=== PATIENT | female | born 1990 | race American Indian/Alaskan Native ===

== ENCOUNTER 2017-03-28 13:21 | Emergency (ER) | payer BC ==
[2017-03-28 13:29] VITALS: BP 117/76; PULSE 87; RESP 20; TEMP 98.7; O2SAT 100
--- NOTE | 2017-03-28 13:52 | C.PDOC ---
History Of Present Illness Michelle Romero is a 26 year old female, with no significant past medical history, who presents to the emergency department complaining of body aches and malaise onset for x4 days. Patient denies any sick contacts. She has been taking dayquil and motrin with no relief. She denies any fever, chills, abdominal pain, nausea, vomit or diarrhea. No further medical complaints. PMD: None provided. Time Seen by Provider: 03/28/17 13:47 Chief Complaint (Nursing): Flu-like Symptoms History Per: Patient History/Exam Limitations: no limitations Onset/Duration Of Symptoms: Days (x4) Current Symptoms Are (Timing): Still Present Sick Contacts (Context): None Associated Symptoms: Other (body aches, malaise.). denies: Fever, Chills, Nausea, Vomiting, Diarrhea Ear Symptoms: Bilateral: None Past Medical History Reviewed: Historical Data, Nursing Documentation, Vital Signs Vital Signs: Last Vital Signs Temp 98.7 F 03/28/17 13:27 Pulse 87 03/28/17 13:27 Resp 20 03/28/17 13:27 BP 117/76 03/28/17 13:27 Pulse Ox 100 03/28/17 13:52 - Medical History PMH: No Chronic Diseases Surgical History: No Surg Hx Family History: States: Unknown Family Hx - Social History Hx Tobacco Use: Yes Hx Alcohol Use: Yes Hx Substance Use: No - Immunization History Hx Tetanus Toxoid Vaccination: No Hx Influenza Vaccination: No Hx Pneumococcal Vaccination: No Review Of Systems Constitutional: Positive for: Malaise, Other (body aches). Negative for: Fever , Chills Gastrointestinal: Negative for: Nausea, Vomiting, Abdominal Pain, Diarrhea Physical Exam - Physical Exam Appears: Well, No Acute Distress Skin: Normal Color, Warm, Dry Head: Atraumatic, Normacephalic Eye(s): bilateral: Normal Inspection, PERRL, EOMI Ear(s): Bilateral: Normal Nose: Normal Oral Mucosa: Moist Throat: Normal Neck: Normal ROM, Supple Chest: Symmetrical Cardiovascular: Rhythm Regular, No Murmur Respiratory: Normal Breath Sounds, No Wheezing Gastrointestinal/Abdominal: Normal Exam, Soft, No Tenderness, No Guarding, No Rebound Back: Normal Inspection, No CVA Tenderness, No Vertebral Tenderness, No Paraspinal Tenderness Extremity: Normal ROM, No Deformity, No Swelling Neurological/Psych: Oriented x3 ED Course And Treatment O2 Sat by Pulse Oximetry: 100 (RA) Pulse Ox Interpretation: Normal Medical Decision Making Medical Decision Making: Initial Impression: Viral syndrome Initial Plan: --Motrin tab 600 mg PO --Tamiflu Cap 75 mg PO --Reevaluation empiric tx for flu benign exam. Disposition Doctor Will See Patient In The: Office Counseled Patient/Family Regarding: Studies Performed, Diagnosis - Disposition Referrals: Morro Snell DO [Staff Provider] - Disposition: HOME/ ROUTINE Disposition Time: 13:52 Condition: GOOD Additional Instructions: continue Tamiflu 75 mg twice a day for 5 days (medicine for Influenza) Continue Daytime and Nighttime flu and cold meds- over the counter- per product recommendations Follow-up with your PMD as needed. Symptoms will last 11-14 days. Prescriptions: Oseltamivir [Tamiflu] 75 mg PO BID #9 cap Instructions: Influenza (ED) Forms: [employer] (Faroese) - Clinical Impression Clinical Impression: Influenza-like illness - Scribe Statement Jonathon Tamayo Provider Attestation: All medical record entries made by the Scribe were at my direction and personally dictated by me. I have reviewed the chart and agree that the record accurately reflects my personal performance of the history, physical exam, medical decision making, and the department course for this patient. I have also personally directed, reviewed, and agree with the discharge instructions and disposition.
== END 2017-03-28 13:56 | disposition home or self-care (01) ==
LOC: C.ER 13:21
DX: J11.1 Influenza due to unidentified influenza virus with other respiratory manifestations (principal); Z87.891 Personal history of nicotine dependence

== ENCOUNTER 2018-01-25 06:23 | Emergency (ER) | payer BC, OTHER ==
[2018-01-25 06:26] VITALS: O2SAT 100
[2018-01-25 06:52] LABS: HCG,QUALITATIVE URINE NEGATIVE (NEGATIVE)
[2018-01-25 06:53] LABS: SQUAMOUS EPITHIAL 1 /hpf (0-5); URINE BILIRUBIN NEGATIVE (NEGATIVE); URINE CLARITY Clear (Clear); URINE COLOR Yellow (YELLOW); URINE GLUCOSE (UA) NORMAL (Normal); URINE LEUKOCYTE ESTERASE NEG Leu/uL (Negative); URINE PROTEIN NEGATIVE (NEGATIVE); URINE UROBILINOGEN NORMAL mg/dL (0.2-1.0)
[2018-01-25] MEDS ORDERED: Sodium Chloride 0.9% 1,000 ML IV STA (07:47)
[2018-01-25] MEDS ORDERED: Sodium Chloride 0.9% 1,000 ML ONE (07:55)
[2018-01-25 08:08] LABS: BASO # 0.1 K/uL (0.0-0.2); EOS # 0.1 K/uL (0.0-0.7); HEMOGLOBIN 13.2 g/dL (11.0-16.0); LYMPH # 1.4 K/uL (1.0-4.3); LYMPH % 16.1 % (20.0-40.0); MEAN CORPUSCULAR HEMOGLOBIN 32.6 pg (27.0-31.0); MEAN CORPUSCULAR HGB CONC 34.1 g/dL (33.0-37.0); MEAN PLATELET VOLUME 8.1 fL (7.2-11.7); MONO # 0.7 K/uL (0.0-0.8); MONO % 8.5 % (0.0-10.0); NEUT # 6.4 K/uL (1.8-7.0); NEUT % 73.4 % (50.0-75.0); RBC 4.06 Mil/uL (3.80-5.20); RED CELL DISTRIBUTION WIDTH 13.5 % (11.5-14.5); WHITE BLOOD COUNT 8.7 K/uL (4.8-10.8)
[2018-01-25 08:14] LABS: URINE BLOOD 1+ (NEGATIVE)
[2018-01-25 08:15] LABS: MEAN CELL VOLUME 95.8 fL (81.0-99.0)
[2018-01-25 08:16] LABS: INR 1.2; PROTHROMBIN TIME 12.6 SECONDS (9.7-12.2)
[2018-01-25 08:21] LABS: ALB/GLOB RATIO 1.3 (1.0-2.1); ALT/SGPT 12 U/L (9-52); AST/SGOT 15 U/L (14-36); BLOOD UREA NITROGEN 13 mg/dL (7-17); CALCIUM 8.6 mg/dl (8.6-10.4); GFR NON-AFRICAN AMERICAN > 60
[2018-01-25 08:22] LABS: LIPASE 551 U/L (23-300)
--- NOTE | 2018-01-25 08:43 | C.PDOC ---
History Of Present Illness 27 y/o female presents to ED with c/o pelvic pain radiating to low back and constipation. Patient states her last menses was 12/30/17 and began menses again 01/22/18, states 1st day passed clots and not normal for her. Patient denies fever, chills, dysuria, urinary frequency, vaginal discharge or any other complaints at this time. Time Seen by Provider: 01/25/18 07:18 Chief Complaint (Nursing): Abdominal Pain History Per: Patient History/Exam Limitations: no limitations Onset/Duration Of Symptoms: Days Current Symptoms Are (Timing): Still Present Past Medical History Reviewed: Historical Data, Nursing Documentation, Vital Signs Vital Signs: Last Vital Signs Temp 98.7 F 01/25/18 06:24 Pulse 122 H 01/25/18 06:24 Resp 22 01/25/18 06:24 BP 117/70 01/25/18 06:24 Pulse Ox 100 01/25/18 06:24 - Medical History PMH: Bronchitis Surgical History: No Surg Hx Family History: States: No Known Family Hx - Social History Hx Tobacco Use: Yes Hx Alcohol Use: Yes Hx Substance Use: No - Immunization History Hx Tetanus Toxoid Vaccination: No Hx Influenza Vaccination: No Hx Pneumococcal Vaccination: No Review Of Systems Constitutional: Negative for: Fever, Chills Gastrointestinal: Positive for: Constipation. Negative for: Nausea, Vomiting, Hematochezia Genitourinary: Positive for: Pelvic Pain. Negative for: Dysuria, Vaginal Discharge Physical Exam - Physical Exam Appears: Non-toxic, No Acute Distress Skin: Warm, Dry, No Rash Head: Atraumatic, Normacephalic Eye(s): bilateral: Normal Inspection Oral Mucosa: Moist Neck: Normal ROM, Supple Cardiovascular: Rhythm Regular Respiratory: Normal Breath Sounds, No Rales, No Rhonchi, No Wheezing Gastrointestinal/Abdominal: Soft, Tenderness (RLQ), No Guarding, No Rebound Back: No CVA Tenderness Extremity: Normal ROM, Capillary Refill (<2 seconds) Neurological/Psych: Oriented x3, Normal Speech, Normal Cognition ED Course And Treatment - Laboratory Results Result Diagrams: 01/25/18 08:00 01/25/18 08:00 O2 Sat by Pulse Oximetry: 100 (RA) Pulse Ox Interpretation: Normal - CT Scan/US Transvaginal US Other Rad Studies (CT/US): Read By Radiologist, Radiology Report Reviewed CT/US Interpretation: HISTORY: pelvic pain/vaginal bleeding. COMPARISON: None available. TECHNIQUE: Transvaginal pelvic ultrasound was performed. FINDINGS: UTERUS: Measures 8.2 x 4.2 x 4.6 cm. Anteverted, normal in size and appeara nce. No fibroid or other mass lesion seen. ENDOMETRIUM: Measures 10 mm in diameter. There are small cystic changes in the endometrium, otherwise grossly normal in appearance. CERVIX: No cervical abnormality identified. RIGHT OVARY: Measures 4.7 x 3.1 x 4.8 cm. No solid mass. Normal flow. There is a 2.6 x 2.5 x 2.3 cm septated cyst. LEFT OVARY: Measures 3.5 x 2.1 x 3.2 cm. No solid mass. Normal flow. There is a 1.3 x 1.0 x 1.3 cm calcification which could represent calcified dermoid. Also noted is adjacent fluid with septations which could represent part of the dermoid or exophytic septated cyst. FREE FLUID: No significant free fluid noted. OTHER FINDINGS: None. IMPRESSION: Small cystic changes, otherwise grossly normal sonographic appearance of central endometrial echo complex. 2.6 cm septated cyst in the right ovary. No evidence for torsion. Suspect dermoid in the left ovary. Adjacent septated cystic area could represent part of the dermoid or exophytic cyst. Short-term interval follow-up in 3-6 months is recommended to assess stability/resolution. CT abd/pelvis Other Rad Studies (CT/US): Read By Radiologist, Radiology Report Reviewed CT/US Interpretation: PROCEDURE: CT Abdomen and Pelvis with oral and IV contrast. HISTORY: low abdominal pain. COMPARISON: None available. TECHNIQUE: Contiguous axial images of the abdomen and pelvis. Oral and IV contrast was administered. Coronal and Sagittal reformats generated and reviewed. Contrast dose: 100 mL Visipaque IV. Radiation dose: Total exam DLP = 324.72 mGy-cm. This CT exam was performed using one or more of the following dose reduction techniques: Automated exposure control, adjustment of the mA and/or kV according to patient size, and/or use of iterative reconstruction technique. FINDINGS: LOWER THORAX: No visible consolidation, pleural effusion, or pneumothorax. LIVER: Subtle hypodensity adjacent to the falciform ligament, possibly focal fatty infiltration. GALLBLADDER AND BILE DUCTS: Unremarkable. PANCREAS: Unremarkable. SPLEEN: Unremarkable. ADRENALS: Unremarkable. KIDNEYS AND URETERS: The kidneys enhance symmetrically. No hydronephrosis or obstructing renal calculus. BLADDER: The urinary bladder appears unremarkable. REPRODUCTIVE: Uterus is present. Large bilateral adnexal cystic masses possibly ovarian cysts. Alternatives including hydrosalpinx cannot be excluded. APPENDIX: The appendix appears within normal limits of caliber. No secondary signs of acute appendicitis. BOWEL: The stomach is nondistended. The bowel loops appear within normal limits of caliber without evidence of intestinal obstruction. PERITONEUM: No significant free fluid. No definite free air. LYMPH NODES: No bulky lymphadenopathy identified. VASCULATURE: No aortic aneurysm. No atherosclerotic calcification or mural plaque present. BONES: No acute osseous abnormality is detected. OTHER FINDINGS: None. IMPR ESSION: Large bilateral adnexal cystic masses possibly ovarian cysts. Alternatives including hydrosalpinx cannot be excluded. Recommend pelvic ultrasound for further evaluation. Subtle hypodensity at the level the falciform ligament, possibly focal fatty infiltration. Additional findings as above. Progress Note: UA, Blood work, US ordered. POC urine preg negative Disposition - Disposition Disposition: HOME/ ROUTINE Disposition Time: 13:12 Condition: STABLE Additional Instructions: Follow up with OBGYN within 1-2 days. Return to ED if feel worse. Instructions: Ovarian Cysts Forms: [employer] (Greek) - Clinical Impression Clinical Impression: Ovarian cyst, bilateral - PA / MATERIALS MANAGEMENT MANAGER / Resident Statement MD/DO has reviewed & agrees with the documentation as recorded. - Scribe Statement The provider has reviewed the documentation as recorded by the Branden Holden All medical record entries made by the Branden were at my direction and personally dictated by me. I have reviewed the chart and agree that the record accurately reflects my personal performance of the history, physical exam, medical decision making, and the department course for this patient. I have also personally directed, reviewed, and agree with the discharge instructions and disposition.
--- NOTE | 2018-01-25 09:50 | US ---
Date of service: 01/25/2018 HISTORY: pelvic pain/vaginal bleeding COMPARISON: None available. TECHNIQUE: Transvaginal pelvic ultrasound was performed. FINDINGS: UTERUS: Measures 8.2 x 4.2 x 4.6 cm. Anteverted, normal in size and appearance. No fibroid or other mass lesion seen. ENDOMETRIUM: Measures 10 mm in diameter. There are small cystic changes in the endometrium, otherwise grossly normal in appearance. CERVIX: No cervical abnormality identified. RIGHT OVARY: Measures 4.7 x 3.1 x 4.8 cm. No solid mass. Normal flow. There is a 2.6 x 2.5 x 2.3 cm septated cyst. LEFT OVARY: Measures 3.5 x 2.1 x 3.2 cm. No solid mass. Normal flow. There is a 1.3 x 1.0 x 1.3 cm calcification which could represent calcified dermoid. Also noted is adjacent fluid with septations which could represent part of the dermoid or exophytic septated cyst. FREE FLUID: No significant free fluid noted. OTHER FINDINGS: None. IMPRESSION: Small cystic changes, otherwise grossly normal sonographic appearance of central endometrial echo complex. 2.6 cm septated cyst in the right ovary. No evidence for torsion. Suspect dermoid in the left ovary. Adjacent septated cystic area could represent part of the dermoid or exophytic cyst. Short-term interval follow-up in 3-6 months is recommended to assess stability/resolution.
[2018-01-25] MEDS ORDERED: Iohexol 240 (50 ml) PO STA (10:09)
[2018-01-25] MEDS ORDERED: Iohexol 240 (50 ml) ONE (10:21)
[2018-01-25] MEDS ORDERED: Iodixanol 320 MG/ML 100 ML BOTTLE IV ONE (11:56)
--- NOTE | 2018-01-25 12:37 | CT ---
PROCEDURE: CT Abdomen and Pelvis with oral and IV contrast. HISTORY: low abdominal pain COMPARISON: None available TECHNIQUE: Contiguous axial images of the abdomen and pelvis. Oral and IV contrast was administered. Coronal and Sagittal reformats generated and reviewed. Contrast dose: 100 mL Visipaque IV Radiation dose: Total exam DLP = 324.72 mGy-cm. This CT exam was performed using one or more of the following dose reduction techniques: Automated exposure control, adjustment of the mA and/or kV according to patient size, and/or use of iterative reconstruction technique. FINDINGS: LOWER THORAX: No visible consolidation, pleural effusion, or pneumothorax. LIVER: Subtle hypodensity adjacent to the falciform ligament, possibly focal fatty infiltration. GALLBLADDER AND BILE DUCTS: Unremarkable. PANCREAS: Unremarkable. SPLEEN: Unremarkable. ADRENALS: Unremarkable. KIDNEYS AND URETERS: The kidneys enhance symmetrically. No hydronephrosis or obstructing renal calculus. BLADDER: The urinary bladder appears unremarkable. REPRODUCTIVE: Uterus is present. Large bilateral adnexal cystic masses possibly ovarian cysts. Alternatives including hydrosalpinx cannot be excluded. APPENDIX: The appendix appears within normal limits of caliber. No secondary signs of acute appendicitis. BOWEL: The stomach is nondistended. The bowel loops appear within normal limits of caliber without evidence of intestinal obstruction. PERITONEUM: No significant free fluid. No definite free air. LYMPH NODES: No bulky lymphadenopathy identified. VASCULATURE: No aortic aneurysm. No atherosclerotic calcification or mural plaque present. BONES: No acute osseous abnormality is detected. OTHER FINDINGS: None. IMPRESSION: Large bilateral adnexal cystic masses possibly ovarian cysts. Alternatives including hydrosalpinx cannot be excluded. Recommend pelvic ultrasound for further evaluation. Subtle hypodensity at the level the falciform ligament, possibly focal fatty infiltration. Additional findings as above.
[2018-01-25 13:08] VITALS: BP 106/67; PULSE 70; RESP 20; TEMP 98
== END 2018-01-25 13:23 | disposition home or self-care (01) ==
LOC: C.ER 06:23
DX: N83.202 Unspecified ovarian cyst, left side (principal); N83.201 Unspecified ovarian cyst, right side
CPT/HCPCS: 74177; 76830; 80053; 81001; 83690; 84703; 85025; 85610; 85730; 96360; 99285; J7030; Q9966; Q9967